=== PATIENT | female | born 1990 | race Caucasian/White ===

== ENCOUNTER 2020-02-25 18:00 | Observation (INO) | payer MEDICAID, MEDICARE | END 2020-02-25 18:55 | disposition home or self-care (01) | LOC: 8 EST LDRP 18:00 | PROVIDERS: ADMIT Obstetrics & Gynecology; ATTEND Obstetrics & Gynecology | DX: O36.8120 Decreased fetal movements, second trimester, not applicable or unspecified (principal); Z3A.22 22 weeks gestation of pregnancy | CPT/HCPCS: 59025; G0378; 99281 ==

== ENCOUNTER 2020-06-19 07:59 | Observation (INO) | payer MEDICARE | END 2020-06-19 11:01 | disposition home or self-care (01) | LOC: 8 EST LDRP 07:59 | PROVIDERS: ADMIT Obstetrics & Gynecology; ATTEND Obstetrics & Gynecology | DX: O26.893 Other specified pregnancy related conditions, third trimester (principal); R10.30 Lower abdominal pain, unspecified; Z3A.39 39 weeks gestation of pregnancy | CPT/HCPCS: 59025; G0378; 99281 ==

== ENCOUNTER 2020-06-26 08:39 | Observation (INO) | payer MEDICARE | END 2020-06-26 15:45 | disposition home or self-care (01) | LOC: 8 EST LDRP 08:39 | PROVIDERS: ADMIT Specialist; ATTEND Specialist | DX: O62.9 Abnormality of forces of labor, unspecified (principal); Z3A.40 40 weeks gestation of pregnancy | CPT/HCPCS: 59025; G0378; 99281 ==

== ENCOUNTER 2020-06-27 07:32 | Observation (INO) | payer MEDICARE | END 2020-06-27 10:30 | disposition home or self-care (01) | LOC: 8 EST LDRP 07:32 | PROVIDERS: ADMIT Obstetrics & Gynecology; ATTEND Obstetrics & Gynecology | DX: O62.9 Abnormality of forces of labor, unspecified (principal); Z3A.40 40 weeks gestation of pregnancy | CPT/HCPCS: 59025; 76805; 76818; G0378; 99281 ==